=== PATIENT | female | born 1975 | race Caucasian/White ===

== ENCOUNTER 2021-11-06 10:29 | Emergency (ER) | payer BC, OTHER, SELFPAY ==
--- NOTE | ~2021-11-06 | XR_ITS ---
EXAMINATION: XR foot LT min 3V DATE: 11/06/2021 11:21 INDICATION: Left foot pain. TECHNIQUE: 4 views of left foot were obtained. COMPARISON: None. FINDINGS: Bone alignment is normal. No fracture. There is mild osteoarthritis of first metatarsophala ngeal joint and third proximal interphalangeal joint. IMPRESSION: 1. Mild polyarticular osteoarthritis. Reviewed, dictated and finalized at location A.
[2021-11-06 11:03] VITALS: BP 130/89; PULSE 71; RESP 18; TEMP 36.8; O2SAT 100
--- NOTE | 2021-11-06 11:32 | ED.GENADULT ---
HPI - General Adult General Stated complaint: lt foot injury History of Present Illness HPI narrative: 46 y/o female. PMHx Non-contributory. Presents to [facility] today with acute complaints of ongoing pain to her LT Foot, after stepping on a rock 4 weeks ago. Client tells me she had sandles on, and was outside pulling weeds at home. She had accidentally stepped on a sharp rock, and injured the plantar aspect of her LT Foot. Increased localized pain, worse with prolonged ambulation. No open wounds or puncture injury. Non-diabetic. No loss of lower extremity sensation or control. No additional injury has bee identified. She is w/o additional acute c/o upon PE. Related Data Home Medications Medication Instructions Recorded Confirmed cetirizine 10 mg tablet (Zyrtec) 10 mg PO DAILY 11/06/21 11/06/21 gabapentin 600 mg tablet 600 mg BID 11/06/21 11/06/21 venlafaxine 37.5 mg 37.5 mg PO DAILY 11/06/21 11/06/21 capsule,extended release 24 hr Allergies Allergy/AdvReac Type Severity Reaction Status Date / Time cephalexin [From Keflex] Allergy Rash Verified 11/06/21 11:38 Review of Systems Review of Systems: CONSTITUTIONAL: Denies fever, chills, sweats. EYES: Denies visual changes, redness, discharge. ENT: Denies rhinorrhea, congestion, sore throat, otalgia. CARDIOVASCULAR: Denies chest pain, palpitations, edema. RESPIRATORY: Denies dyspnea, wheezing, cough GASTROINTESTINAL: Denies abdominal pain, nausea, vomiting, diarrhea. GENITOURINARY: Denies dysuria, hematuria, abnormal discharge SKIN: Denies rash or itching. MUSCULOSKELETAL: LT Foot pain. Denies additional joint pain, or myalgia. NEUROLOGIC: Denies numbness, or focal weakness. PSYCHIATRIC: Denies anxiety or depression. Exam Narrative: GENERAL: This is a well-nourished, well-developed adult, in no apparent distress. HEAD: normocephalic EYES: Sclera clear/white. EARS: External ears normal NOSE: External nose normal. THROAT: Mucous membranes moist. NECK: Neck supple, non-tender. CARDIOVASCULAR: Regular rate and rhythm. Strong pulses LLE. RESPIRATORY: Clear to auscultation. GASTROINTESTINAL: Abdomen soft, non-tender. SKIN: warm, intact. No FB LLE. NEURO: Alert, active, and age appropriate. No focal neurologic deficits. Good sensation and discrimination LLE. EXTREMITIES: With mild point tenderness and localized pain to mid-plantar aspect LT foot. No open wounds, no erythema or warmth, No FB. Mild soft tissue swelling to site, without obvious bony deformity or gross unilateral deficits. Remainder of musculoskeletal exam is negative. Course Course Level of Care: Express Care Visit Vital Signs Vital signs: Vital Signs Temperature 36.8 C 11/06/21 11:03 Pulse Rate 71 11/06/21 11:03 Respiratory Rate 18 11/06/21 11:03 Blood Pressure 130/89 11/06/21 11:03 Pulse Oximetry 100 11/06/21 11:03 Oxygen Delivery Room Air 11/06/21 11:03 Temperature 36.8 C 11/06/21 11:03 Pulse Rate 71 11/06/21 11:03 Respiratory Rate 18 11/06/21 11:03 Blood Pressure 130/89 11/06/21 11:03 Pulse Oximetry 100 11/06/21 11:03 Oxygen Delivery Room Air 11/06/21 11:03 Medical Decision Making MDM Narrative Medical decision making narrative: -No FB. No open wounds. ROM intact. No neurovascular deficits. -Xray LT Foot, mild polyarticular OA. No acute bony Fx or dislocation. -Will DC to home stable on PRN NSAID & Steroid taper- Suspect Plantar irritations. She is non-diabetic and has no reported NSAID contraindications. -Home Plantar exercises have been provided. Recommend additional arch insert support until healed. -PCP F/U 1WK. Consider additional OP imaging or PT therapies w/persistence. -ER W/Emergent status changes. Pt agrees. Differential Diagnosis Differential Diagnosis: Differential Diagnosis: Consideration of the following conditions may be warranted for the presenting problem, they are not final diagnoses: Likel
== END 2021-11-06 11:45 | disposition home or self-care (01) ==
PROVIDERS: Emergency Provider Nurse Practitioner Adult Health; PCP Physician Assistant
DX: S96.912A Strain of unspecified muscle and tendon at ankle and foot level, left foot, initial encounter (principal); W22.8XXA Striking against or struck by other objects, initial encounter; M72.2 Plantar fascial fibromatosis
CPT/HCPCS: 73630; 99213; G0463